=== PATIENT | male | born 1995 | race Asian ===

== ENCOUNTER 2016-06-30 17:55 | Emergency (ER) | payer OTHER ==
[~2016-06-30] VITALS: Ht 174 cm; Wt 74.8 kg
[2016-06-30 17:59] VITALS: TEMP 36.8; Ht 174 cm; Wt 74.8 kg
--- NOTE | 2016-06-30 18:47 | EMERGENCY ROOM VISIT NOTE ---
History Report prepared by Carloz: Justus Mustafa Under the Supervision of: Dr. Rodrigo Jackson D.O. First contact with patient: 18:28 Chief Complaint: HEADACHE Stated Complaint: HEADACHE History of Present Illness The patient is a 21 year old male who presents to the Emergency Room with complaints of a waxing and waning headache that began three days ago. The patient is currently not feeling much pain. His pain does worsen with lying down and leaning forward. The patient took Ibuprofen, which he said did not help. He denies any nausea, vomiting, shortness of breath, fever, or neck pain. He denies any sick contacts. He has not seen anyone for these symptoms prior to coming to the ED. The patient has a history of Epilepsy. He takes Valproic Acid to treat it. He has not had a seizure for two years. He denies any surgeries. Source of History: patient Onset: three days ago Position: head Symptom Intensity: mild Quality: ache Timing: waxes/wanes Modifying Factors (Worsening): rest, other (leaning forward) Associated Symptoms: No SOB, No fevers, No nausea, No neck pain, No vomiting Review of Systems See HPI for pertinent positives & negatives. A total of 10 systems reviewed and were otherwise negative. Past Medical & Surgical Medical Problems: (1) Seizures Family History Diabetes mellitus Hypertension Seizures Social History Smoking Status: Never Smoker Smokeless Tobacco Use: No Alcohol Use: none Drug Use: none Marital Status: single Housing Status: lives with roommate Occupation Status: [employer] Current/Historical Medications Scheduled Amoxicillin & Pot Clavulanate (Augmentin 875-125 mg), 875 MG PO BID Allergies Coded Allergies: No Known Allergies (Unverified , 03/15/13) Physical Exam Vital Signs Date Time Temp Pulse Resp B/P Pulse Ox O2 Delivery O2 Flow Rate FiO2 06/30/16 19:38 76 20 122/59 99 06/30/16 17:59 36.8 85 18 133/81 100 Room Air Physical Exam GENERAL: Patient is awake, alert, and in no acute distress. Patient is resting comfortably and showing no signs of anxiety EYES: The conjunctivae are clear. The pupils are round and reactive. EARS, NOSE, MOUTH AND THROAT: The nose is without any evidence of any deformity. Mucous membranes are moist tongue is midline NECK: The neck is nontender and supple. RESPIRATORY: Normal respiratory effort is noted there is no evidence of wheezing rhonchi or rales CARDIOVASCULAR: Regular rate and rhythm noted there no murmurs rubs or gallops normal S1 normal S2 GASTROINTESTINAL: The abdomen is soft. Bowel sounds are present in all quadrants. Abdomen is nontender MUSCULOSKELETAL/EXTREMITIES: There is no evidence of gross deformity full range of motion is noted in the hips and shoulders SKIN: There is no obvious evidence of any rash. There are no petechiae, pallor or cyanosis noted. NEUROLOGIC: Patient is awake alert and oriented x3 strength is symmetric patellar reflexes are 2+ bilaterally Medical Decision & Procedures ER Provider Diagnostic Interpretation: Radiology results per my review and radiologist interpretation: CT HEAD WITHOUT CONTRAST (CT) CLINICAL HISTORY: Frontal headache COMPARISON STUDY: 06/22/2013 TECHNIQUE: Axial CT of the brain is performed from the vertex to the skull base. IV contrast was not administered for this examination. CT DOSE: 601.98 mGy.cm FINDINGS: No intra or extra-axial mass lesions are visualized. There is no CT evidence of acute cortical infarction. There is no evidence of midline shift. There is no acute hemorrhage. No calvarial fractures are visualized. There is no evidence of pathologic ventricular dilatation. There is a frontal sinus air-fluid level. There is partial opacification of several right-sided ethmoid air cells. IMPRESSION: 1. Acute frontal sinusitis. Inflammatory changes are also present within right ethmoid air cells 2. Otherwise unremarkable noncontrast head CT. Electronically signed by: Jhon De Paz M.D. 06/30/2016 7:02 PM Dictated Date/Time: 06/30/2016 7:00 PM Medications Administered Medications (Trade) Dose Ordered Sig/Grayson Route Start Time Stop Time Status Last Admin Dose Admin Amoxicillin/ Clavulanate Potassium (Augmentin Tab) 875 mg ONE ONCE PO 06/30/16 19:30 06/30/16 19:31 DC 06/30/16 19:36 875 MG Amoxicillin/ Clavulanate Potassium (Augmentin 875MG Home Pack) 1 homepack UD ONCE PO 06/30/16 19:30 06/30/16 19:31 DC 06/30/16 19:36 1 HOMEPACK ED Course 1828: The patient was evaluated in room B2. A complete history and physical examination were performed. 1930: Amoxicillin/ Clavulanate Potassium 1 homepack PO, Amoxicillin/ Clavulanate Potassium 875 mg PO 2100: Upon reevaluation, the patient is resting. I discussed the results and treatment plan with him. He verbalized agreement of the treatment plan. He was discharged home. Medical Decision Differential diagnosis: Etiologies such as migraine headache, meningitis, sinusitis, CO exposure, ICH, SAH, infection, tumor, headache, sinus thrombosis, arterial dissection, as well as others were entertained. Nursing notes reviewed. The patient is a 21-year-old male who presented to emergency department for evaluation of headache. Patient doesn't a history of headaches in the past but this does not feel the same. He has no trauma. He had no meningismus or fever. The patient had pain which worsened when he bent forward. CT the head showed signs of sinusitis. He was started on an antibiotic. I discussed the patient's radiographic studies with him. He was started on an antibiotic. He was encouraged to rest and continue all medications as prescribed. He was also encouraged to follow-up with [facility] this week for reevaluation but return to the emergency department immediately if symptoms change worsen or the need arises. He was also encouraged to start taking Flonase for decongestant. Impression Primary Impression: Acute frontal sinusitis Additional Impression: Frontal headache Scribe Attestation The scribe's documentation has been prepared under my direction and personally reviewed by me in its entirety. I confirm that the note above accurately reflects all work, treatment, procedures, and medical decision making performed by me. Departure Information Dispostion Home / Self-Care Prescriptions Amoxicillin & Pot Clavulanate (Augmentin 875-125 mg) 1 Tab Tab 875 MG PO BID for 7 Days, #14 TAB Prov: Rodrigo Jackson, DO 06/30/16 Referrals No Doctor, Assigned (PCP) Forms HOME CARE DOCUMENTATION FORM, IMPORTANT VISIT INFORMATION Patient Instructions Cellulitis Ch, My [facility] Additional Instructions Call your family in the morning to schedule appointment. Continue all medications as prescribed. Consider using Flonase which is an [id number] nasal spray for decongestion. Problem Qualifiers
--- NOTE | 2016-06-30 19:04 | DIAGNOSTIC IMAGING REPORT ---
CT HEAD WITHOUT CONTRAST (CT) CLINICAL HISTORY: Frontal headache COMPARISON STUDY: 06/22/2013 TECHNIQUE: Axial CT of the brain is performed from the vertex to the skull base. IV contrast was not administered for this examination. CT DOSE: 601.98 mGy.cm FINDINGS: No intra or extra-axial mass lesions are visualized. There is no CT evidence of acute cortical infarction. There is no evidence of midline shift. There is no acute hemorrhage. No calvarial fractures are visualized. There is no evidence of pathologic ventricular dilatation. There is a frontal sinus air-fluid level. There is partial opacification of several right-sided ethmoid air cells. IMPRESSION: 1. Acute frontal sinusitis. Inflammatory changes are also present within right ethmoid air cells 2. Otherwise unremarkable noncontrast head CT. Electronically signed by: Jhon De Paz M.D. 06/30/2016 7:02 PM Dictated Date/Time: 06/30/2016 7:00 PM
[2016-06-30] MEDS ORDERED: AMOX875T PO (19:25)
[2016-06-30] MEDS ORDERED: AMOXICILLIN/CLAVULANATE TAB 875 MG TAB PO ONE (19:30)
[2016-06-30] MEDS ORDERED: AMOXICIL/CLAVU 875MG HOME PACK PO ONE (19:30)
[2016-06-30 19:38] VITALS: BP 122/59; PULSE 76; O2SAT 99
== END 2016-06-30 19:41 | disposition home or self-care (01) ==
LOC: C.EDB 17:55
DX: J01.10 Acute frontal sinusitis, unspecified (principal); R51 Headache